=== PATIENT | male | born 1990 | race Hispanic/Latino ===

== ENCOUNTER 2019-12-16 10:57 | Emergency (ER) | payer OTHER ==
[2019-12-16] MEDS ORDERED: TETANUS/DIPHTHERIA TOXOID [ADULT] 0.5 ML VIAL IM ONE (11:13)
== END 2019-12-16 12:06 | disposition home or self-care (01) ==
LOC: EDH 10:57
DX: S91.332A Puncture wound without foreign body, left foot, initial encounter (principal); Z72.0 Tobacco use; W45.0XXA Nail entering through skin, initial encounter; Y93.89 Activity, other specified; Y92.098 Other place in other non-institutional residence as the place of occurrence of the external cause; Y99.8 Other external cause status
CPT/HCPCS: 73630; 90471; 90714